=== PATIENT | female | born 1990 | race African-American/Black ===

== ENCOUNTER 2019-12-11 23:40 | Inpatient (IN) | payer BC ==
[~2019-12-11] VITALS: Ht 152.4 cm; Wt 61.4 kg
[2019-12-12 00:16] LABS: HCG URINE NEGATIVE (NEGATIVE)
[2019-12-12 00:17] LABS: BILIRUBIN NEGATIVE (NEGATIVE); KETONE MODERATE mg/dL (NEGATIVE); NITRITE NEGATIVE (NEGATIVE); UROBILINOGEN NORMAL (NORMAL)
[2019-12-12 00:18] LABS: BACTERIA FEW /hpf (NEGATIVE); RED CELLS - URINE 0-5 /hpf (0-5); WHITE CELLS - URINE OCC /hpf (NEGATIVE)
[2019-12-12 00:37] LABS: CALC OSMOLALITY 272 mosm/kg (275-300); CALCIUM 8.9 mg/dL (8.5-10.1); CARBON DIOXIDE 26.7 mmol/L (21.0-32.0); CHLORIDE - SERUM 104 mmol/L (98-107); CREATININE - SERUM 0.7 mg/dL (0.6-1.3); GLUCOSE 87 mg/dL (74-106); POTASSIUM - SERUM 4.3 mmol/L (3.5-5.1); SODIUM 136 mmol/L (136-145); UREA NITROGEN 17 mg/dL (7-18); eGFR NON AFRICAN AMERICAN > 90 mL/min (90-120)
[2019-12-12 00:41] LABS: ALKALINE PHOSPHATASE 78 U/L (30-120); ALT (SGPT) 20 U/L (10-68); AMYLASE - SERUM 76 U/L (25-115); LIPASE 126 U/L (73-393); PROTEIN - SERUM 7.6 g/dL (6.4-8.2)
[2019-12-12 00:59] LABS: BASOPHILS 0.3 % (0-2); EOSINOPHILS 1.3 % (0-7); HEMATOCRIT 41.6 % (36.0-48.0); IMMATURE GRANULOCYTES 0.3 % (0-5); LYMPHOCYTES 25.5 % (15-50); MCH 30.2 pg (26.0-34.0); MCHC 33.7 g/dL (31.0-37.0); MCV 89.8 fL (80.0-100.0); MEAN PLATELET VOLUME 10.2 fL (7.4-10.4); MONOCYTES 6.6 % (2-11); PLATELET COUNT 253 10x3/uL (130-400); RBC 4.63 10x6/uL (4.00-5.40); RDW 12.1 % (11.5-14.5)
--- NOTE | 2019-12-12 07:00 | NUR ---
ASSUMED CARE OF PT AT THIS TIME.
[2019-12-12 08:22] VITALS: BP 107/53
[2019-12-12 12:07] VITALS: BP 106/58
[2019-12-12 13:05] LABS: APTT 37.1 SECONDS (22.8-39.4); INR 1.08 (0.85-1.17)
[2019-12-12 15:40] VITALS: BP 99/49
--- NOTE | 2019-12-12 17:20 | NUR ---
PT AT INTERVENTIONAL RADIOLOGY. PT WILL GO TO FLOOR FROM IR. REPORT CALLED TO ROWAN OTTO.
--- NOTE | 2019-12-12 18:26 | NUR ---
I have reviewed this patient and I concur with the Shift Assessment completed by the Licensed Practical Nurse today this shift.
[2019-12-12 22:03] VITALS: BP 114/63
[2019-12-13] VITALS: BP 106/47
[2019-12-13 04:00] VITALS: BP 114/55
[2019-12-13 07:21] LABS: BASOPHILS 0.2 % (0-2); EOSINOPHILS 1.3 % (0-7); HEMATOCRIT 37.2 % (36.0-48.0); IMMATURE GRANULOCYTES 0.1 % (0-5); LYMPHOCYTES 22.7 % (15-50); MCH 29.1 pg (26.0-34.0); MCHC 32.3 g/dL (31.0-37.0); MCV 90.3 fL (80.0-100.0); MEAN PLATELET VOLUME 10.4 fL (7.4-10.4); MONOCYTES 6.7 % (2-11); PLATELET COUNT 220 10x3/uL (130-400); RBC 4.12 10x6/uL (4.00-5.40); WBC 9.7 10x3/uL (4.8-10.8)
[2019-12-13 07:50] LABS: ALBUMIN 3.4 g/dL (3.4-5.0); ALKALINE PHOSPHATASE 70 U/L (30-120); ALT (SGPT) 71 U/L (10-68); AMYLASE - SERUM 61 U/L (25-115); BILIRUBIN - TOTAL 0.67 mg/dL (0.2-1.3); CALC OSMOLALITY 269 mosm/kg (275-300); CALCIUM 7.9 mg/dL (8.5-10.1); CARBON DIOXIDE 24.7 mmol/L (21.0-32.0); CHLORIDE - SERUM 107 mmol/L (98-107); CREATININE - SERUM 0.7 mg/dL (0.6-1.3); GLUCOSE 81 mg/dL (74-106); LIPASE 87 U/L (73-393); MAGNESIUM - SERUM 2.2 mg/dL (1.8-2.4); POTASSIUM - SERUM 4.4 mmol/L (3.5-5.1); PROTEIN - SERUM 6.4 g/dL (6.4-8.2); SODIUM 136 mmol/L (136-145); UREA NITROGEN 10 mg/dL (7-18); eGFR NON AFRICAN AMERICAN > 90 mL/min (90-120)
[2019-12-13 11:03] VITALS: BP 105/37
[2019-12-13 11:28] VITALS: Ht 152.4 cm; Wt 61.4 kg
[2019-12-13 14:10] LABS: ALPHA FETOPROTEIN -(TUMOR MRK) 1.4 ng/mL (0.0-8.3); CA125 45.2 U/mL (0.0-38.1)
[2019-12-13] MEDS ORDERED: HYDROCODON-ACE1 EA10 PO (14:16)
--- NOTE | 2019-12-13 14:34 | NUR ---
OPA IN AIRWAY ON ADMIT
[2019-12-13 15:00] VITALS: BP 121/76
[2019-12-13 15:10] VITALS: BP 133/86
--- NOTE | 2019-12-13 18:47 | NUR ---
DISCHARGE PAPERWORK SIGNED, ALL QUESTIONS ANSWERED. IV TO RIGHT FOREARM AND LEFT WRIST DC'D, TIPS INTACT. ESCORTED OUT VIA WHEELCHAIR.
[2019-12-14 10:12] LABS: HEPATITIS C ANTIBODY <0.1 S/CO RAT (0.0-0.9)
--- NOTE | 2019-12-15 13:22 | OP ---
PATIENT NAME: CHIDI REECE MEDICAL RECORD: [id number] :90 LOCATION:[id number] ADMISSION DATE:12/12/19 SURGEON: RONEN MCLAUGHLIN MD DATE OF OPERATION: 12/13/2019 PREOPERATIVE DIAGNOSES: 1. Gallstones. 2. Ovarian cyst. 3. Liver lesions. POSTOPERATIVE DIAGNOSES: 1. Gallstones. 2. Ovarian cyst. 3. Liver lesions. PROCEDURE: Laparoscopic cholecystectomy. SURGEON: Ronen Mclaughlin MD REPORT OF PROCEDURE: The patient's abdomen was prepped and draped in sterile fashion. A cutdown was made on the superior aspect of the umbilicus, 0 Vicryls were placed in the fascia bilaterally and the fascia was incised with 15-blade. I then bluntly entered the peritoneal cavity and placed a 12-mm Branden port. Under direct visualization, a 5 mm trocar was placed in the epigastrium and 2 more 5-mm trocars were placed in the right subcostal region. The gallbladder was grasped and elevated. The patient had a large amount of stones present within the gallbladder. The cystic artery and cystic duct were dissected free and these were clipped proximally and distally and ligated in standard fashion. The gallbladder was then taken off the liver bed using electrocautery and placed into the right upper quadrant. Any bleeding from the liver bed was then treated with electrocautery. At this point, the ports and insufflation were then removed and the gallbladder was taken out through the umbilicus. The umbilical fascia was closed with interrupted 0 Vicryls times 3. The wounds were then irrigated out with normal saline and infused with 10 mL of 0.25% Marcaine with epinephrine. Skin incisions were all closed with subcutaneous 5-0 Monocryl and dressed appropriately. COMPLICATIONS: None. CONDITION: Stable. ANESTHESIA: General endotracheal and local. BLOOD LOSS: Minimal. TRANSINT:[id number] Voice Confirmation ID: [id number] DOCUMENT ID: [id number] OPERATIVE REPORT [id number] CHIDI REECE CHRISTIAN MD at 1322 CC: [id number] DICTATION DATE: 12/13/19 1419 BAG MAKER: 12/14/19 0007 DIS IN 12/13/19 [id number] [place] [address]
== END 2019-12-13 18:48 | disposition home or self-care (01) | DRG 418 ==
LOC: D.ER 23:40 → D.EDHOLD 12-12 06:06 → D.MS 12-12 06:06
PROVIDERS: Family Medicine; Surgery; ADMIT Family Medicine Adult Medicine; ATTEND Family Medicine Adult Medicine
PROC: 0FT44ZZ Resection of Gallbladder, Percutaneous Endoscopic Approach (ICD-10-PCS; principal; 2019-12-13 12:45)
DX: K80.10 Calculus of gallbladder with chronic cholecystitis without obstruction (principal); K81.0 Acute cholecystitis; N83.209 Unspecified ovarian cyst, unspecified side; R16.0 Hepatomegaly, not elsewhere classified; D72.829 Elevated white blood cell count, unspecified

== ENCOUNTER 2019-12-14 00:26 | Emergency (ER) | payer BC ==
[~2019-12-14] VITALS: Ht 152.4 cm; Wt 61.4 kg
[~2019-12-14 00:26] MED LIST: HYDROCODON-ACE1 EA10 PO
[2019-12-14 00:32] VITALS: Ht 152.4 cm; Wt 61.4 kg
[2019-12-14 01:20] LABS: BASOPHILS 0.1 % (0-2); EOSINOPHILS 0 % (0-7); HEMATOCRIT 42.4 % (36.0-48.0); HEMOGLOBIN 14.4 g/dL (12-16); IMMATURE GRANULOCYTES 0.2 % (0-5); LYMPHOCYTES 5.2 % (15-50); MCH 30.3 pg (26.0-34.0); MCV 89.1 fL (80.0-100.0); MEAN PLATELET VOLUME 10.2 fL (7.4-10.4); MONOCYTES 4.2 % (2-11); NEUTROPHILS 90.3 % (40-80); PLATELET COUNT 226 10x3/uL (130-400); RBC 4.76 10x6/uL (4.00-5.40); RDW 11.7 % (11.5-14.5)
[2019-12-14 01:22] LABS: WBC 16.9 10x3/uL (4.8-10.8)
[2019-12-14 01:39] LABS: CALCIUM 8.7 mg/dL (8.5-10.1); CARBON DIOXIDE 19.5 mmol/L (21.0-32.0); CHLORIDE - SERUM 104 mmol/L (98-107); CREATININE - SERUM 0.6 mg/dL (0.6-1.3); POTASSIUM - SERUM 4.5 mmol/L (3.5-5.1); SODIUM 132 mmol/L (136-145); eGFR NON AFRICAN AMERICAN > 90 mL/min (90-120)
[2019-12-14 01:43] LABS: ALBUMIN 4.2 g/dL (3.4-5.0); ALKALINE PHOSPHATASE 97 U/L (30-120); BILIRUBIN - TOTAL 0.74 mg/dL (0.2-1.3)
[2019-12-14 01:48] LABS: ALT (SGPT) 253 U/L (10-68); CALC OSMOLALITY 265 mosm/kg (275-300); GLUCOSE 159 mg/dL (74-106); UREA NITROGEN 6 mg/dL (7-18)
[2019-12-14 02:24] VITALS: BP 118/80
== END 2019-12-14 02:25 | disposition home or self-care (01) ==
LOC: D.ER 00:26
PROVIDERS: Family Medicine
DX: G89.18 Other acute postprocedural pain (principal); R10.9 Unspecified abdominal pain

== ENCOUNTER → 2020-01-05 08:31 | Outpatient (CLI) | payer BC ==
[2019-12-14 00:32] VITALS: BMI 26.4
== END | disposition home or self-care (01) ==
LOC: D.MRI 08:31
PROVIDERS: ATTEND Surgery
DX: K76.89 Other specified diseases of liver (principal)